=== PATIENT | male | born 1950 | race Caucasian/White ===

== ENCOUNTER 2018-03-03 07:58 | Day surgery (SDC) | payer MEDICARE, BC ==
[~2018-03-03 07:58] MED LIST: Buffered Lidocaine 0.9% SYRIN* 5 ML/SYR SYRINGE INTRADERM ONE
[2018-03-03] MEDS ORDERED: fentaNYL* 50 MCG/ML 2 ML VIAL (100 MCG VIAL) ONE (08:38)
[2018-03-03] MEDS ORDERED: Midazolam* 1 MG/ML 5 ML VIAL (5 MG) ONE (08:39)
[2018-03-03] MEDS ORDERED: Bupivacaine 0.25% SDV PF* 10 ML VIAL INJ ONE ×2 (09:01→09:02)
[2018-03-03] MEDS ORDERED: Naloxone* 0.4 MG/ML 1 ML VIAL IV PRN (10:05)
[2018-03-03 10:09] VITALS: BP 116/78
--- NOTE | 2018-03-04 03:55 | OP ---
DATE OF OPERATION: 03/03/18 [facility] DATE OF : 50 SURGEON: Pritesh Locke MD FIREBOAT OPERATOR: XAVIER Dela Cruz ANESTHESIOLOGIST: Dr. Diaz ANESTHESIA: Local MAC PRE-OP DIAGNOSES: 1. Left carpal tunnel syndrome. 2. Left trigger thumb. 3. Left middle trigger finger. POST-OP DIAGNOSES: 1. Left carpal tunnel syndrome. 2. Left trigger thumb. 3. Left middle trigger finger. OPERATIVE PROCEDURE: 1. Left carpal tunnel release. 2. Left trigger thumb release. INDICATIONS: Julio had progressive left carpal tunnel syndrome. Additionally , I gave him a trigger thumb injection, after which, it got completely better, but it has now recurred. The left middle finger is catching a bit, but is not bothering him and so he does not want to have that released today. We talked about risks and benefits. He wants to proceed with surgery. ESTIMATED BLOOD LOSS: 1 mL. COMPLICATIONS: None. FINDINGS: See above and below. DESCRIPTION OF PROCEDURE: Julio was seen in the preoperative holding area. The correct site, side, and procedure were identified. We came back to the operating room, where he got some anesthesia and then I infiltrated the operative area with 0.25% plain Marcaine. The arm was then prepped and draped in the usual fashion and a time-out was performed. The arm was exsanguinated and the tourniquet was inflated to 250 mmHg. I then made a transverse 1-cm incision in MP joint flexion crease of the left thumb. Dissection was carried down. The digital nerves were protected. The A1 aminah was then released with the 15-blade and the tenotomy scissors. Once the release was complete and there was no more catching of the thumb, we irrigated out the wound and the skin was closed with 4-0 nylon suture. I then made a 2 to 3 cm longitudinal incision in the typical location from an open carpal tunnel release. Dissection was carried down through the subcutaneous and the palmar fascia. The transverse carpal ligament was then released just off the radial aspect of the hook of the hamate. The release was completed distally with the tenotomy scissors and then proximally I released the subcutaneous tissue and palmar fascia. I retracted this out of the way and released the remainder of the transverse carpal ligament and distal antebrachial fascia with the tenotomy scissors. Once the release was confirmed and there was no compression on the nerve, we irrigated out the wound. The skin was closed with 4-0 nylon suture. Soft dressings were applied. He was woken up and taken to the recovery room in stable condition. [id number] #: [id number] MTDD
== END 2018-03-03 10:31 | disposition home or self-care (01) ==
LOC: OREAST 07:58
PROVIDERS: ATTEND Orthopaedic Surgery Hand Surgery
DX: G56.02 Carpal tunnel syndrome, left upper limb (principal); M65.312 Trigger thumb, left thumb; M65.332 Trigger finger, left middle finger; I10 Essential (primary) hypertension; Z87.891 Personal history of nicotine dependence; M19.90 Unspecified osteoarthritis, unspecified site
CPT/HCPCS: J2250; J3010; J3490